=== PATIENT | female | born 1950 | race Caucasian/White ===

== ENCOUNTER → 2022-10-02 12:53 | Outpatient (CLI) | payer MEDICARE, SELFPAY ==
--- NOTE | 2022-10-02 13:02 | DI.RAD.S_ITS ---
PROCEDURE: XR KNEE RT 3V INDICATIONS: ACUTE KNEE PAIN TECHNIQUE: 3 views of the knee were acquired. COMPARISON: [facility], CR, XR KNEE LT 3V, 10/02/2022, 13:05. FINDINGS: Bones: No fractures or dislocations. Minimal degenerative change. No suspicious bony lesions. Soft tissues: No joint effusion. No suspicious soft tissue calcifications. IMPRESSION: No acute osseous abnormality. Dictated by: Myron Ritter M.D. on 10/02/2022 at 17:31 Approved by: Myron Ritter M.D. on 10/02/2022 at 17:31
--- NOTE | 2022-10-02 13:02 | DI.RAD.S_ITS ---
PROCEDURE: XR KNEE LT 3V INDICATIONS: ACUTE KNEE PAIN TECHNIQUE: 3 views of the knee were acquired. COMPARISON: None. FINDINGS: Bones: No fractures or dislocations. Minimal degenerative change. No suspicious bony lesions. Soft tissues: No joint effusion. No suspicious soft tissue calcifications. IMPRESSION: No acute osseous abnormality. Dictated by: Myron Ritter M.D. on 10/02/2022 at 17:30 Approved by: Myron Ritter M.D. on 10/02/2022 at 17:31
== END ==
PROVIDERS: Referring Provider Student in an Organized Health Care Education/Training Program; Visit Provider Student in an Organized Health Care Education/Training Program
DX: M25.562 Pain in left knee (principal); M25.561 Pain in right knee
CPT/HCPCS: 73562

== ENCOUNTER 2023-03-08 12:08 | Emergency (ER) | payer MEDICARE, SELFPAY ==
[2023-03-08] VITALS (16 sets, daily range): BP systolic 152–202; BP diastolic 71–96; PULSE 64–77; RESP 15–24; TEMP 37.2; O2SAT 94–98; BMI 28.3
--- NOTE | 2023-03-08 12:57 | DI.RAD.S_ITS ---
PROCEDURE: XR CHEST 1V INDICATIONS: Possible stroke TECHNIQUE: One view of the chest was acquired. COMPARISON: None. FINDINGS: Surgical changes and devices: None. Lungs and pleura: Lungs are difficult to accurately assess due to prominent reduced inspiratory volume. No consolidative pneumonia or mass is seen. Mild or early pulmonary edema cannot be entirely excluded.. No pleural effusions or pneumothorax. Mediastinum: Mediastinal contours appear normal. Heart size is normal. Bones and chest wall: No suspicious bony lesions. Overlying soft tissues appear unremarkable. IMPRESSION: Prominently reduced inspiratory volume limits the interpretation-no definite pneumonia or mass is found. Dictated by: Shiva Walker M.D. on 03/08/2023 at 13:31 Approved by: Shiva Walker M.D. on 03/08/2023 at 13:32
--- NOTE | 2023-03-08 12:59 | DI.CT.S_ITS ---
PROCEDURE: CT ANGIO HEAD AND NECK INDICATIONS: left sided weakness TECHNIQUE: Pre-contrast 4.5 mm thick sections acquired from the foramen magnum to the vertex. After the administration of intravenous contrast, 1 mm thick sections acquired from the aortic arch through the [place] of [place]. Post-contrast 4.5 mm thick sections then re-acquired from the foramen magnum to the vertex. 3-dimensional aavnyvy-pkjuzteqi-alenthcftz (MIP) and/or volume rendering reformats were acquired of the central intracranial vasculature and neck separately. For radiation dose reduction, the following was used: automated exposure control, adjustment of mA and/or kV according to patient size. COMPARISON: None. FINDINGS: Image quality: Excellent. BRAIN: CSF spaces: Ventricles are normal in size and shape. Basal cisterns are patent. No extra-axial fluid collections. Brain: No midline shift. No intracranial bleeds or masses. Anderson-white matter interface appears intact. Skull and face: Calvarium and facial bones appear intact, without suspicious lesions. Orbits appear normal. Sinuses: Sinuses and mastoids are clear. HEAD CT ANGIOGRAPHY: Anterior circulation: Intracranial internal carotid arteries are normal in size and flow. The flow within the paired anterior cerebral arteries is normal and symmetric. The flow within the middle cerebral arteries is normal and symmetric. The anterior communicating artery is seen. No aneurysms are seen. Posterior circulation: Visualized portions of the vertebral arteries demonstrate normal caliber, and join to form a normal appearing basilar artery. Flow within the posterior cerebral arteries is normal and symmetric. No aneurysms are seen. NECK CT ANGIOGRAPHY: Carotid system: The great vessels demonstrate a conventional anatomy as they arise from the aortic arch. The origins of the common carotid arteries appear patent. The common carotid arteries demonstrate normal caliber and courses. The bifurcation regions are both widely patent. The internal carotid arteries demonstrate normal calibers and courses. Posterior circulation: The origins of the vertebral arteries both appear widely patent. The more superior extracranial portions of both vertebral arteries also demonstrate normal courses and calibers. They join to form a normal appearing basilar artery. Soft tissues: Visualized neck soft tissues demonstrate no suspicious abnormalities. Bones: No suspicious bony lesions. Visualized cervical spine appears normally aligned. IMPRESSION: 1. No acute intracranial process. 2. Unremarkable CTA head. No stenosis, aneurysm, occlusion, or focal filling defect. 3. Patent carotids. Comment: Findings were discussed with Dr. Hernandez on 03/08/2023 at 1344 hours Any quantitative measurements of stenosis were performed using NASCET criteria. Dictated by: Juan Carlos Werner M.D. on 03/08/2023 at 13:40 Approved by: Juan Carlos Werner M.D. on 03/08/2023 at 13:45
[2023-03-08 13:26] LABS: Add Manual Diff / Slide Review NO; Basophils Absolute Auto 100 /uL (0-100); Basophils Percent Auto 1.4 % (0-2); Eosinophils Absolute Auto 200 /uL (0-450); Eosinophils Percent Auto 2.1 % (2-4); Hematocrit 41.5 % (36-46); Hemoglobin 14.2 g/dL (12.0-16.0); Lymphocytes Absolute Auto 2600 /uL (1100-4500); Lymphocytes Percent Auto 37.4 % (25-40); Mean Corpuscular HGB Conc 34.3 % (30-36); Mean Corpuscular Hemoglobin 31.5 PG (26-34); Mean Corpuscular Volume 91.8 fL (80-100); Monocytes Absolute Auto 400 /uL (0-900); Monocytes Percent Auto 5.9 % (3-14); Neutrophils Absolute Auto 3800 /uL (1500-7000); Neutrophils Percent Auto 53.2 % (50-75); Platelet Count 247 X10^3/uL (150-400); Red Blood Cell Count 4.52 X10^6/uL (4.0-5.2); Red Cell Distribution Width 13.3 % (11.6-14.8); White Blood Cell Count 7.1 X10^3/uL (4.5-11.0)
--- NOTE | 2023-03-08 13:42 | ED.EXTPRO ---
HPI - Extremity Problem General Chief complaint: Extremity Problem,Nontraumatic Stated complaint: tingling in lt arm sine 02/23 pain spreading Time Seen by Provider: 03/08/23 12:58 Source: patient Mode of arrival: Family Vehicle History of Present Illness HPI Narrative: Patient is a 72-year-old female without known past medical history presenting today with 12 day as left arm numbness and tingling. She reports that she woke up on the from sleep and had some numbness and tingling. He says it has been coming and going she feels like she is decreased sensation in the left arm it is not significantly weak. She feels like she is been having some intermittent brain fog. She lives alone she does not know she is had any word salad but no facial droop is appreciated today no slurring of speech. She denies any visual issues. No chest pain or shortness of breath. She was feeling a little bit nauseous last week but that has improved no abdominal pain. Related Data Previous Rx's Medication Instructions Recorded gabapentin 300 mg capsule 300 mg PO BEDTIME #30 caps 03/08/23 prednisone 20 mg tablet 40 mg PO DAILY #10 tabs 03/08/23 Allergies Allergy/AdvReac Type Severity Reaction Status Date / Time No Known Drug Allergies Allergy Verified 03/08/23 12:32 Review of Systems Review of Systems ROS Unobtainable: All systems reviewed & are unremarkable except as noted in HPI and below Patient History Social History Smoking Status: Never smoker Smoking Status: Never smoker alcohol intake frequency: a few times a month Substance Use Type: does not use Exam Initial Vital Signs Initial Vital Signs: Vital Signs Temperature 98.9 F 03/08/23 12:27 Pulse Rate 77 03/08/23 12:27 Respiratory Rate 18 03/08/23 12:27 Blood Pressure 184/79 H 03/08/23 12:27 Pulse Oximetry 97 03/08/23 12:27 Oxygen Delivery Method Room Air 03/08/23 12:27 GENERAL: Alert pleasant well-appearing 72-year-old female HEENT: Head atraumatic,EOMI, pupils reactive, face symmetric, moist mucous membranes CARDIOVASCULAR: Regular rate and rhythm without murmurs, rubs or gallops. RESPIRATORY: Breath sounds equal bilaterally, no wheezes rales or rhonchi. ABDOMEN: Soft, nontender. Normoactive bowel sounds all 4 quadrants. No guarding or rebound. EXTREMITIES: Normal range of motion, no clubbing or edema. Neurovascularly intact NEUROLOGICAL: Alert and oriented x4.Normal gait and speech. Cranial nerves II through XII grossly intact. Good zlqzcj-ra-ojyt, good bjzu-ok-uwyt, strength equal bilaterally, no dysarthria or aphasia, decreased sensation on left side mostly upper extremity but some lower extremity as well, no visual changes, no facial droop SKIN: Warm, dry, no laceration, no petechiae, no rashes or lesions. Scores NIH Stroke Scale Level of Conciousness: Alert, keenly responsive Ask month/age: Answers both questions correctly. Open/close eyes, close hand: Performs both tasks correctly Best gaze horizontal: Normal Visual corbin: No visual loss Facial palsy: Normal symetrical movement Left arm drift: No drift for full 10 sec Right arm drift: No drift for full 10 sec Left leg drift: No drift for full 5 sec Right leg drift: No drift for full 5 sec Limb ataxia: Absent Sensory on face/arms/legs: Mild to moderate sensory loss, can tell touch Best language: No aphasia, normal Dysarthria: Normal Extinction or inattention: No abnormality Total NIH Stroke scale score: 1 Course Orders Ordered: ED Orders 03/08/23 12:57 XR chest 1V Stat 03/08/23 12:59 CT angio head and neck Stat 03/08/23 13:09 Complete Blood Count AUTO DIFF Stat Comprehensive Metabolic Panel Stat Magnesium Stat PTT Partial Thromboplastin Tristan Stat Prothrombin Time INR Stat Troponin & CK Cardiac Panel Stat 03/08/23 13:40 Urine Culture Stat Urine Drug Screen, Rapid Stat Urine Microscopic Stat 03/08/23 13:51 EKG-12 Lead Stat 03/08/23 13:53 MR head/brain wo con Stat Discontinued Medications Ondansetron HCl (Ondansetron 4 Mg/2 Ml Inj) 4 mg IV NOW PRN PRN Reason: Nausea And Vomiting Ondansetron HCl (Ondansetron 4 Mg Odt) 4 mg SL NOW PRN PRN Reason: Nausea And Vomiting Vital Signs Vital signs: Vital Signs - 8 hr 03/08/23 12:27 03/08/23 17:13 03/08/23 13:44 Temperature 98.9 F Pulse Rate 77 69 66 Respiratory Rate 18 18 19 Blood Pressure 184/79 H 186/96 H Pulse Oximetry 97 94 Oxygen Delivery Method Room Air Room Air 03/08/23 13:46 03/08/23 13:46 03/08/23 14:00 Temperature Pulse Rate 67 67 Respiratory Rate 17 19 Blood Pressure 192/81 H Pulse Oximetry 97 96 Oxygen Delivery Method 03/08/23 14:01 03/08/23 14:01 03/08/23 14:03 Temperature Pulse Rate 68 67 Respiratory Rate 19 24 Blood Pressure 162/71 H Pulse Oximetry 96 95 Oxygen Delivery Method 03/08/23 14:03 03/08/23 14:58 03/08/23 14:59 Temperature Pulse Rate 67 68 Respiratory Rate Blood Pressure 152/76 H Pulse Oximetry 98 96 Oxygen Delivery Method 03/08/23 14:59 03/08/23 15:00 03/08/23 15:01 Temperature Pulse Rate 66 65 Respiratory Rate Blood Pressure 158/75 H Pulse Oximetry 96 97 Oxygen Delivery Method 03/08/23 15:01 03/08/23 15:30 03/08/23 15:31 Temperature Pulse Rate 65 64 Respiratory Rate Blood Pressure 202/82 H Pulse Oximetry 97 98 Oxygen Delivery Method 03/08/23 15:31 03/08/23 16:00 03/08/23 16:00 Temperature Pulse Rate 65 Respiratory Rate Blood Pressure 186/79 H 179/78 H Pulse Oximetry 96 Oxygen Delivery Method 03/08/23 16:30 03/08/23 17:00 Temperature Pulse Rate 66 75 Respiratory Rate 15 Blood Pressure 186/96 H Pulse Oximetry 97 96 Oxygen Delivery Method MDM - Extremity (Nontraumatic) Lab Data 03/08/23 13:09 03/08/23 13:09 Labs: Lab Results 03/08/23 03/08/23 03/08/23 Range/Units 13:09 13:09 13:09 WBC 7.1 (4.5-11.0) X10^3/uL RBC 4.52 (4.0-5.2) X10^6/uL Hgb 14.2 (12.0-16.0) g/dL Hct 41.5 (36-46) % MCV 91.8 (80-100) fL MCH 31.5 (26-34) PG MCHC 34.3 (30-36) % RDW 13.3 (11.6-14.8) % Plt Count 247 (150-400) X10^3/uL Neut % (Auto) 53.2 (50-75) % Lymph % (Auto) 37.4 (25-40) % [place] % (Auto) 5.9 (3-14) % Eos % (Auto) 2.1 (2-4) % Baso % (Auto) 1.4 (0-2) % Neut # (Auto) 3800 (4802-0499) /uL Lymph # (Auto) 2600 (8819-5554) /uL [place] # (Auto) 400 (0-900) /uL Eos # (Auto) 200 (0-450) /uL Baso # (Auto) 100 (0-100) /uL PT 11.3 (10.1-12.7) SECONDS INR 1.0 (0.9-1.3) APTT 30 (26-36) SECONDS Sodium 140 (137-145) mmol/L Potassium 3.6 (3.4-5.1) mmol/L Chloride 104 (98-107) mmol/L Carbon Dioxide 28 (22-32) mmol/L BUN 17 (7-17) mg/dL Creatinine 0.59 (0.52-1.04) mg/dL Estimated GFR > 60 (>60) mL/min BUN/Creatinine Ratio 28.8 H (6-22) Glucose 116 H (80-110) mg/dL Calcium 8.7 (8.4-10.2) mg/dL Magnesium 2.2 (1.6-2.3) mg/dL Total Bilirubin 0.4 (0.2-1.3) mg/dL AST 49 H (14-36) IU/L ALT 75 H (<35) IU/L Alkaline Phosphatase 67 (38-126) U/L Total Creatine Kinase 92 (30-135) U/L Troponin I < 0.012 (0.01-0.034) ng/mL Total Protein 7.5 (6.3-8.2) g/dL Albumin 4.4 (3.5-5.0) g/dL Globulin 3.1 (1.7-4.1) g/dL Albumin/Globulin Ratio 1.4 (1.0-2.8) Urine RBC (0-5/HPF) Urine WBC (0-5/HPF) Ur Squamous Epith Cells (0-5/HPF) Urine Bacteria (None) Ur Culture Indicated? U Opiates 300ng/mL cut (Negative) Ur Oxycodone Screen (Negative) Urine Methadone Screen (Negative) Ur Barbiturates Screen (Negative) U Tricyclic Antidepress (Negative) Ur Phencyclidine Scrn (Negative) Ur Amphetamines Screen (Negative) U Methamphetamines Scrn (Negative) Ur MDMA Scrn (Ecstasy) (Negative) U Benzodiazepines Scrn (Negative) Urine Cocaine Screen (Negative) U Marijuana (THC) Screen (Negative) 03/08/23 03/08/23 Range/Units 13:40 13:40 WBC (4.5-11.0) X10^3/uL RBC (4.0-5.2) X10^6/uL Hgb (12.0-16.0) g/dL Hct (36-46) % MCV (80-100) fL MCH (26-34) PG MCHC (30-36) % RDW (11.6-14.8) % Plt Count (150-400) X10^3/uL Neut % (Auto) (50-75) % Lymph % (Auto) (25-40) % [place] % (Auto) (3-14) % Eos % (Auto) (2-4) % Baso % (Auto) (0-2) % Neut # (Auto) (9003-6459) /uL Lymph # (Auto) (6023-5692) /uL [place] # (Auto) (0-900) /uL Eos # (Auto) (0-450) /uL Baso # (Auto) (0-100) /uL PT (10.1-12.7) SECONDS INR (0.9-1.3) APTT (26-36) SECONDS Sodium (137-145) mmol/L Potassium (3.4-5.1) mmol/L Chloride (98-107) mmol/L Carbon Dioxide (22-32) mmol/L BUN (7-17) mg/dL Creatinine (0.52-1.04) mg/dL Estimated GFR (>60) mL/min BUN/Creatinine Ratio (6-22) Glucose (80-110) mg/dL Calcium (8.4-10.2) mg/dL Magnesium (1.6-2.3) mg/dL Total Bilirubin (0.2-1.3) mg/dL AST (14-36) IU/L ALT (<35) IU/L Alkaline Phosphatase (38-126) U/L Total Creatine Kinase (30-135) U/L Troponin I (0.01-0.034) ng/mL Total Protein (6.3-8.2) g/dL Albumin (3.5-5.0) g/dL Globulin (1.7-4.1) g/dL Albumin/Globulin Ratio (1.0-2.8) Urine RBC None seen (0-5/HPF) Urine WBC 0-1/hpf (0-5/HPF) Ur Squamous Epith Cells 1-5 /hpf (0-5/HPF) Urine Bacteria None seen (None) Ur Culture Indicated? Cult not indicated U Opiates 300ng/mL cut Negative (Negative) Ur Oxycodone Screen Negative (Negative) Urine Methadone Screen Negative (Negative) Ur Barbiturates Screen Negative (Negative) U Tricyclic Antidepress Negative (Negative) Ur Phencyclidine Scrn Negative (Negative) Ur Amphetamines Screen Negative (Negative) U Methamphetamines Scrn Negative (Negative) Ur MDMA Scrn (Ecstasy) Negative (Negative) U Benzodiazepines Scrn Negative (Negative) Urine Cocaine Screen Negative (Negative) U Marijuana (THC) Screen Negative (Negative) Urine Dip Bedside Urine Glucose Negative Bedside Urine Bilirubin - Negative Bedside Urine Ketone - Negative Urine Specific [place] 1.015 Bedside Urine Occult Blood - Negative Bedside Urine pH 6.0 Bedside Urine Protein - Negative Bedside Urine Urobilinogen - Negative Bedside Urine Nitrite - Negative Bedside Urine Leukocytes +/- 15 Esterase Imaging Data MR Brain: Radiologist's Impression: PROCEDURE:? MR HEAD/BRAIN WO CON ? INDICATIONS:? left sided weakness ? TECHNIQUE:? Noncontrast axial T1 spin echo, axial T2 fast spin echo, sagittal and axial FLAIR, coronal T2 fast spin echo, axial gradient echo, axial diffusion and ADC through the brain.? ? COMPARISON:? [facility], CT, CT ANGIO HEAD AND NECK, 03/08/2023, 13:25. ? FINDINGS:? Image quality:? Excellent.? ? CSF Spaces:? Basal cisterns are patent.? No extra-axial fluid collections.? Ventricles are normal in size and shape.? ? Brain:? No intracranial masses or hemorrhage.? Anderson/white matter interface is normal.? Brainstem appears normal.? Diffusion-weighted images demonstrate no acute ischemic insult.? No chronic ischemic insults.? Normal intravascular flow voids are present.? ? Skull and face:? Calvarium has normal marrow signal.? Orbits appear normal.? ? Sinuses:? Sinuses and mastoids are clear.? ? IMPRESSION:? Unremarkable brain MRI.? No acute intracranial process. ? ? Dictated by: Juan Carlos Werner M.D. on 03/08/2023 at 15:30 CTA - brain/neck: Radiologist's Impression: PROCEDURE:? CT ANGIO HEAD AND NECK ? INDICATIONS:? left sided weakness ? TECHNIQUE:? Pre-contrast 4.5 mm thick sections acquired from the foramen magnum to the vertex.? After the administration of intravenous contrast, 1 mm thick sections acquired from the aortic arch through the [place] of [place].? Post-contrast 4.5 mm thick sections then re-acquired from the foramen magnum to the vertex.? 3-dimensional fjjrrgj-hmkmnsigw-rxkyulzfbw (MIP) and/or volume rendering reformats were acquired of the central intracranial vasculature and neck separately. For radiation dose reduction, the following was used:? automated exposure control, adjustment of mA and/or kV according to patient size.? ? COMPARISON:? None. ? FINDINGS:? Image quality:? Excellent.? ? BRAIN:? CSF spaces:? Ventricles are normal in size and shape.? Basal cisterns are patent.? No extra-axial fluid collections.? ? Brain:? No midline shift.? No intracranial bleeds or masses.? Anderson-white matter interface appears intact.? ? Skull and face:? Calvarium and facial bones appear intact, without suspicious lesions.? Orbits appear normal.? ? Sinuses:? Sinuses and mastoids are clear.? ? HEAD CT ANGIOGRAPHY:? Anterior circulation:? Intracranial internal carotid arteries are normal in size and flow.? The flow within the paired anterior cerebral arteries is normal and symmetric.? The flow within the middle cerebral arteries is normal and symmetric.? The anterior communicating artery is seen.? No aneurysms are seen.? ? Posterior circulation:? Visualized portions of the vertebral arteries demonstrate normal caliber, and join to form a normal appearing basilar artery.? Flow within the posterior cerebral arteries is normal and symmetric.? No aneurysms are seen.? ? NECK CT ANGIOGRAPHY:? Carotid system:? The great vessels demonstrate a conventional anatomy as they arise from the aortic arch.? The origins of the common carotid arteries appear patent.? The common carotid arteries demonstrate normal caliber and courses.? The bifurcation regions are both widely patent.? The internal carotid arteries demonstrate normal calibers and courses.? ? Posterior circulation:? The origins of the vertebral arteries both appear widely patent.? The more superior extracranial portions of both vertebral arteries also demonstrate normal courses and calibers.? They join to form a normal appearing basilar artery.? ? Soft tissues:? Visualized neck soft tissues demonstrate no suspicious abnormalities.? ? Bones:? No suspicious bony lesions.? Visualized cervical spine appears normally aligned.? IMPRESSION:? ? 1. No acute intracranial process. ? 2. Unremarkable CTA head.? No stenosis, aneurysm, occlusion, or focal filling defect. ? 3. Patent carotids. ? Comment: Findings were discussed with Dr. Hernandez on? 03/08/2023 at 1344 hours ? Any quantitative measurements of stenosis were performed using NASCET criteria.? ? ? Dictated by: Juan Carlos Werner M.D. on 03/08/2023 at 13:40 ? ? Chest x-ray: Radiologist's Impression: PROCEDURE:? XR CHEST 1V ? INDICATIONS:? Possible stroke ? TECHNIQUE:? One view of the chest was acquired.? ? COMPARISON:? None. ? FINDINGS:? ? Surgical changes and devices:? None.? ? Lungs and pleura:? Lungs are difficult to accurately assess due to prominent reduced inspiratory volume.? No consolidative pneumonia or mass is seen.? Mild or early pulmonary edema cannot be entirely excluded..? No pleural effusions or pneumothorax.? ? Mediastinum:? Mediastinal contours appear normal.? Heart size is normal.? ? Bones and chest wall:? No suspicious bony lesions.? Overlying soft tissues appear unremarkable.? ? IMPRESSION:? Prominently reduced inspiratory volume limits the interpretation-no definite pneumonia or mass is found. ? ? Dictated by: Shiva Walker M.D. on 03/08/2023 at 13:31 ECG Data Interpretation: Normal sinus rhythm rate 95 OR interval 162 QRS [address] changes MDM Narrative Medical decision making narrative: Patient 72-year-old female presenting today with hypertension numbness tingling weakness on the left side. She really has not NIH stroke scale 1 she is out of the window for tPA. Concern for CVA. CT angio is negative. MRI is also negative for CVA. This is likely a neuropathy. She actually reports after further questioning that the numbness tingling is worse during the day when she is using it rather than at nighttime. It does not keep her awake at night she is able to sleep. Blood work has been reviewed there is no clinical significant abnormalities. Liver enzymes minimally elevated with an AST of 49 and ALT of 75. Her blood pressure has come down without any intervention. She has no sign of end-organ damage. At this time supportive care only. Recommend outpatient follow-up and monitor her blood pressure at home. Discharge Plan Departure Patient Disposition: Home Clinical Impression: Peripheral neuropathy Instructions: High Blood Pressure, DI for Peripheral Neuropathy Activity Restrictions/Additional Instructions: *You have been diagnosed with peripheral neuropathy *What to do: At this time stroke has been successfully ruled out. This is most likely a peripheral neuropathy. Increase activity as tolerated. Hopefully this gets better for you. Please check your blood pressure 1 to 2 times daily record it and follow up with your primary care provider. You may require blood pressure medication. *Continue to take medications as directed Prednisone 40 mg once a day for 5 days Gabapentin 300 mg at nighttime *Follow up with your primary care provider in 2-3 days or call [phone] *Return to ER if you should have increasing weakness pain [or] any new, worsening or concerning symptoms Prescriptions: New prednisone 20 mg tablet 40 mg PO DAILY Qty: 10 0RF gabapentin 300 mg capsule 300 mg PO BEDTIME Qty: 30 0RF Stand Alone Forms: Patient Portal/API
[2023-03-08 13:51] LABS: Prothrombin Time 11.3 SECONDS (10.1-12.7)
--- NOTE | 2023-03-08 13:53 | DI.MRI.S_ITS ---
PROCEDURE: MR HEAD/BRAIN WO CON INDICATIONS: left sided weakness TECHNIQUE: Noncontrast axial T1 spin echo, axial T2 fast spin echo, sagittal and axial FLAIR, coronal T2 fast spin echo, axial gradient echo, axial diffusion and ADC through the brain. COMPARISON: [facility], CT, CT ANGIO HEAD AND NECK, 03/08/2023, 13:25. FINDINGS: Image quality: Excellent. CSF Spaces: Basal cisterns are patent. No extra-axial fluid collections. Ventricles are normal in size and shape. Brain: No intracranial masses or hemorrhage. Anderson/white matter interface is normal. Brainstem appears normal. Diffusion-weighted images demonstrate no acute ischemic insult. No chronic ischemic insults. Normal intravascular flow voids are present. Skull and face: Calvarium has normal marrow signal. Orbits appear normal. Sinuses: Sinuses and mastoids are clear. IMPRESSION: Unremarkable brain MRI. No acute intracranial process. Dictated by: Juan Carlos Werner M.D. on 03/08/2023 at 15:30 Approved by: Juan Carlos Werner M.D. on 03/08/2023 at 15:31
[2023-03-08 13:54] LABS: PTT Partial Thromboplastin Tim 30 SECONDS (26-36)
[2023-03-08 13:55] LABS: Alanine Aminotransferase 75 IU/L (<35); Albumin 4.4 g/dL (3.5-5.0); Albumin Globulin Ratio 1.4 (1.0-2.8); Alkaline Phosphatase 67 U/L (38-126); Aspartate Aminotransferase 49 IU/L (14-36); BUN Creatinine Ratio 28.8 (6-22); Bilirubin Total 0.4 mg/dL (0.2-1.3); Blood Urea Nitrogen 17 mg/dL (7-17); Calcium 8.7 mg/dL (8.4-10.2); Carbon Dioxide 28 mmol/L (22-32); Chloride 104 mmol/L (98-107); Creatine Kinase 92 U/L (30-135); Estimated Glomerular Filt Rate > 60 mL/min (>60); Globulin 3.1 g/dL (1.7-4.1); Glucose 116 mg/dL (80-110); HEMOLYSIS 17 (0-50); Magnesium 2.2 mg/dL (1.6-2.3); Potassium 3.6 mmol/L (3.4-5.1); Sodium 140 mmol/L (137-145); Total Protein 7.5 g/dL (6.3-8.2)
[2023-03-08 14:06] LABS: Troponin I < 0.012 ng/mL (0.01-0.034)
[2023-03-08 14:17] LABS: UR Morphine/Opiate cutoff 300 Negative (Negative); Ur Creatinine Normal (Normal); Ur Specific Gravity Normal (Normal); Urine Amphetamines Negative (Negative); Urine Barbiturates Negative (Negative); Urine Benzodiazepines Negative (Negative); Urine Cocaine Negative (Negative); Urine MDMA Negative (Negative); Urine Methadone Negative (Negative); Urine Methamphetamines Negative (Negative); Urine Oxycodone Negative (Negative); Urine Phencyclidine Negative (Negative); Urine Tetrahydrocannabinol Negative (Negative); Urine Tricyclic Antidepressant Negative (Negative); Urine pH Normal (Normal)
[2023-03-08 14:22] LABS: Bacteria Urine None Seen; Culture Indicated Urine Cult Not Indicated; RBC Urine None Seen (0-5/HPF); Squamous Epithelial Cell Urine 1-5 /HPF (0-5/HPF); WBC Urine 0-1/HPF (0-5/HPF)
--- NOTE | 2023-03-08 15:07 | PC.NURSE ---
patient states that her left arm has been tingling since the 23 of february. She stated that 1 week later she began to have brain fog and had a hard time recalling words. He fast exam is negative and only shows a sensitivity deficit on NIH. She reports having a decrease in sensation on her left side. She did not appear to be ataxic but did report a noticeable difference in strength between her arms and legs. She stated that her left arm and leg took more focus to do the ataxia maneuvers. Provider aware. Imaging ordered.
== END 2023-03-08 17:17 | disposition home or self-care (01) ==
PROVIDERS: Emergency Provider Emergency Medicine
DX: G62.9 Polyneuropathy, unspecified (principal); R29.701 NIHSS score 1; R20.0 Anesthesia of skin; R20.2 Paresthesia of skin; R03.0 Elevated blood-pressure reading, without diagnosis of hypertension
CPT/HCPCS: 36415; 70496; 70498; 70551; 71045; 80053; 80305; 81003; 81015; 82550; 83735; 84484; 85025; 85610; 85730; 87086; 93005; 93010; 99284; 99285; Q9967